=== PATIENT | male | born 1980 | race Hispanic/Latino ===

== ENCOUNTER 2025-07-31 21:16 | Emergency (ER) | payer SELFPAY ==
[2025-07-31 21:20] VITALS: BP 142/87
[2025-07-31 21:35] VITALS: BP 128/85
[2025-07-31 21:41] VITALS: BMI 28.0
--- NOTE | 2025-07-31 23:06 | ED.SKININJ ---
HPI-Injury
General
Chief Complaint: Skin Problem
Source: patient
Time Seen by Provider: 07/31/25 22:16
Nursing documentation reviewed up to this point in time: agreed with
History of Present Illness-Injury
Initial Injury comments:
Pleasant 44-year-old male presents the emergency department with a superficial laceration to the bridge of his nose. He was climbing a ladder and the ladder fell. He went down a couple of rungs and struck his nose on the ladder. Denies loss of
consciousness. Denies any other injury. He states that his last tetanus shot was 3 years ago. This was confirmed via instructor private. Patient reports all of his dentition is intact. No difficulty breathing reported.
Review of Systems
Review of Systems
Allergies reviewed?: Yes
All Other Systems: ROS reviewed and negative except as documented in HPI and ROS
Phy Exam
General Physical Exam
General Presentation: well appearing and mild distress
General age: appears stated age
General Skin: warm and dry
General Habitus: normal
General Mental: alert
General Hydration: appears well hydrated
Pulmonary Exam
Pulmonary Exam: no respiratory distress and no cough
Neurological Exam
Neurological Exam: alert and oriented x3
Musculoskeletal Exam
Musculoskeletal Exam: full ROM
Skin Exam
Skin Exam: normal color, warm/dry and laceration (Superficial Y-shaped laceration to the bridge of the nose)
Psychiatric Exam
Psychiatric Exam: normal mood/affect
Course
Vital Signs
Initial and Last Documented VS:
Initial Vital Signs
Temp Pulse Resp BP Pulse Ox
98.5 F 59 16 142/87 98
07/31/25 21:20 07/31/25 21:20 07/31/25 21:20 07/31/25 21:20 07/31/25 21:20
Last Documented Vital Signs
Temp Pulse Resp BP Pulse Ox
98.5 F 59 16 128/85 96
07/31/25 21:20 07/31/25 21:20 07/31/25 21:20 07/31/25 21:35 07/31/25 21:36
Procedures
Laceration Closure
Nose:
Status of Wound: clean
Size of Wound in cm: 2
Description of Wound Edges: sharp
Preparation: cleaned with saline
Revision/Debridement: routine- no revision
Wound exploration: explored to base- no FB
Type of Closure: Dermabond-skin glue and other (Steri-Strips)
*Pulse Oximetry
SaO2: 96
Oxygen Mode of Delivery: Room air
Patient hypoxic: no
*Critical Care Note
Total Time (30-74mins, 75-104mins- exclusive of procedures): Not Applicable
ED Attending Note
-
Portions of this chart may have been created with voice recognition software.� Occasional wrong word or��sound alike� substitutions may have occurred due to the inherent limitations of voice recognition software.
Discharge Plan
Departure
Patient Disposition: Home (Routine Discharge)
Date of Disposition: 07/31/25
Time of Disposition: 23:15
Patient with high blood pressure during this ER visit?: Yes
Condition: Good
Discharge Problem:
Laceration of nose
Instructions: Wound Care (DC), BLOOD PRESSURE, Steri-Strips over Glued Wound
Referrals:
[facility] [Outside]
[facility] [Outside]
Activity Restrictions/Additional Instructions:
Reassessment demonstrates that they are in no acute distress. They remain nontoxic appearing. I Discussed all labs and radiology studies with them.
The pt is stable for discharge. Counseling is provided as documented below, discussed symptomatic treatment and specific conditions for return.
Pain was addressed to their satisfaction.
In addition to written instructions upon discharge, return precautions and followup instructions were extensively discussed with the patient. No further questions at this time. They verbally acknowledged understanding of these instructions without
any apparent barriers to learning.
When the patient was discharged from the ED, the patient was given specific instructions and information regarding their illness. The patient was verbally instructed to return to the ER urgently for any worsening symptoms OR failure of symptom
improvement over the next 12-24 hours and this was also written in the discharge instructions. In the patient's discharge instructions I told them to follow-up with their primary care provider in 1-2 days as well as to follow-up with any specialists
as necessary. If they did not have a primary care provider I gave them an alternate clinic to call and make an appointment (or [facility] to find a PCP). I also included diagnosis-specific educational material in their discharge paperwork.
Interventions
Interventions:
*Risk Screen - Suicide Last Done: 07/31/25 21:17
*Neglect/Abuse Screening Last Done: 07/31/25 21:17
Discharge Date and Time
Print Language: CUBAN
== END 2025-07-31 23:46 | disposition home or self-care (01) ==
LOC: EMR 21:16
PROVIDERS: EMERGENCY PHYSICIAN Student in an Organized Health Care Education/Training Program
DX: S01.21XA Laceration without foreign body of nose, initial encounter (principal); W11.XXXA Fall on and from ladder, initial encounter
CPT/HCPCS: 12011; 99282